=== PATIENT | male | born 1960 | race Caucasian/White ===

== ENCOUNTER 2020-07-31 23:36 | Emergency (ER) | payer OTHER ==
[~2020-07-31] VITALS: Ht 177.8 cm; Wt 86.4 kg
[2020-08-01 00:02] LABS: BASO # 0.1 x10^3/uL (0.0-0.2); BASO % 1 % (0-3); EOS # 0.1 x10^3/uL (0.0-0.7); EOS % 1 % (0-3); HEMATOCRIT 41.8 % (39.0-53.0); HEMOGLOBIN 14.4 g/dL (13.0-17.5); LYMPH # 1.4 x10^3/uL (1.0-4.8); LYMPH % 13 % (24-48); MEAN CORPUSCULAR HEMOGLOBIN 35 pg (25-35); MEAN CORPUSCULAR HGB CONC 34 g/dL (31-37); MEAN CORPUSCULAR VOLUME 102 fL (79-100); MONO # 1.6 x10^3/uL (0.0-1.1); MONO % 15 % (0-9); NEUT # 7.8 x10^3/uL (1.8-7.7); NEUT % 71 % (31-73); PLATELET COUNT 230 x10^3/uL (140-400); RED BLOOD COUNT 4.11 x10^6/uL (4.30-5.70); RED CELL DISTRIBUTION WIDTH 12.6 % (11.5-14.5); WHITE BLOOD COUNT 11.1 x10^3/uL (4.0-11.0)
[2020-08-01 00:03] LABS: BILIRUBIN,URINE NEGATIVE (NEG); CLARITY,URINE CLEAR; COLOR,URINE YELLOW; NITRITE,URINE NEGATIVE (NEG); PH,URINE 5.5 (<5.0-8.0); PROTEIN,URINE 30 mg/dL (NEG-TRACE); UROBILINOGEN,URINE 0.2 mg/dL (0.2 mg/dL)
[2020-08-01 00:09] LABS: BACTERIA,URINE 0 /HPF (0-FEW); RBC,URINE TNTC /HPF (0-2); WBC,URINE RARE /HPF (0-4)
[2020-08-01 00:14] LABS: CALCIUM 9.5 mg/dL (8.5-10.1); CREATININE 1.4 mg/dL (0.7-1.3); GFR 51.7; POTASSIUM 3.9 mmol/L (3.5-5.1)
[2020-08-01 00:20] LABS: ALBUMIN 4.3 g/dL (3.4-5.0); TOTAL BILIRUBIN 0.5 mg/dL (0.2-1.0); TOTAL PROTEIN 8.6 g/dL (6.4-8.2)
[2020-08-01] MEDS ORDERED: IV NORMAL SALINE 1000ML BAG 1,000 ML IV ONE (00:45)
[2020-08-01] MEDS ORDERED: HYDROmorphone 2 MG/ML VIAL IVP ONE ×3 (00:45→02:15)
[2020-08-01] MEDS ORDERED: CONTRAST GIVEN. MC PRN (01:00)
[2020-08-01] MEDS ORDERED: IOHEXOL 350 MG/ML 100 ML VIAL. IV ONE (01:00)
--- NOTE | 2020-08-01 01:08 | RAD ---
CT abdomen and pelvis without contrast: Reason for examination: Right flank pain. Helical images were obtained through the abdomen and pelvis without intravenous contrast administered . Reconstruction was performed in sagittal and coronal planes. Exposure: One or more of the following individualized dose reduction techniques were utilized for thi s examination: 1. Automated exposure control 2. Adjustment of the mA and/or kV according to patient size 3. Use of iterative reconstruction technique. There is atelectasis at the left lung base. The heart size is normal with no pericardial effusion. No abnormality seen at the liver, gallbladder, spleen, adrenal glands or pancreas. The abdominal aort a and inferior vena cava show no abnormalities. No abnormality seen at the appendix. There are some d iverticuli in the descending and sigmoid colon without evidence of diverticulitis. There is no eviden ce of colitis. The small intestinal tract shows no abnormal dilatation, wall thickening or apparent o bstruction. No abnormality seen at the stomach but there is moderate amount of gastric content presen t. No gastric obstruction is seen. The left kidney shows no renal mass, renal calculus, hydronephrosi s or evidence of obstructive uropathy. The right kidney however shows no renal mass or renal calculus . There is however a mild hydronephrosis which appears to be due to a small obstructing calculus whic h appears to lie at the ureterovesical junction and measures 3.8 mm in length. The bladder is not distended. Prostate gland is mildly enlarged. Seminal vesicles are symmetric. Note is made of small lytic lesions in the iliac bones. There is degenerative spondylosis with severe deg enerative disc disease at the L5-S1 disc level and a grade 1 retrolisthesis of L5 on S1. IMPRESSION: Linear atelectasis at the left lung base. 3.8 mm calculus at the right ureterovesical junction with mild hydronephrosis. Diverticulosis in the descending and sigmoid colon but no evidence of diverticulitis. Enlarged prostate gland. Small lytic lesions in the iliac bones. Recommend clinical correlation and follow-up. Degenerative spondylosis with severe degenerative disc disease at the L5-S1 disc level with a grade 1 retrolisthesis of L5 on S1. Electronically signed by: Margaret Fisher MD (08/01/2020 1:05 AM) NICK
[2020-08-01] MEDS ORDERED: ONDANSETRON PF 4 MG/2 ML VIAL. IVP ONE (01:15)
--- NOTE | 2020-08-01 01:29 | RAD ---
CT angiograms of the chest, abdomen and pelvis with contrast: Reason for examination: Flank pain. Rule out dissection. Helical images were obtained through the chest, abdomen and pelvis with intravenous administration of 80 cc Omnipaque 350 using angiographic protocol. 3-D MIPS reconstruction was performed in sagittal a nd coronal planes. Exposure: One or more of the following individualized dose reduction techniques were utilized for thi s examination: 1. Automated exposure control 2. Adjustment of the mA and/or kV according to patient size 3. Use of iterative reconstruction technique. The trachea and mainstem bronchi show no intraluminal lesions. No abnormality seen at the esophagus. The thoracic aorta shows no aneurysmal dilatation or dissection. The heart size is normal with no per icardial effusion. There is no evidence of pulmonary embolism. There is some linear atelectasis at th e lung bases. No consolidated infiltrates or pleural effusions are seen and no pneumothorax is eviden t. No acute bony abnormality seen in the thorax. No focal lesions are seen at the liver or spleen. No abnormalities of seen at the adrenal glands, hsu creas or gallbladder. The abdominal aorta shows no aneurysmal dilatation or dissection. No abnormalit y seen at the inferior vena cava. No abnormality seen at the stomach or duodenum. The small intestina l tract shows no abnormal dilatation, wall thickening or obstruction. No abnormality seen at the appe ndix. There is some diverticulosis in the descending colon and sigmoid colon without diverticulitis. There is no colitis. The kidneys show no renal masses. The left kidney shows no hydronephrosis or obs tructive uropathy. The right kidney shows mild hydronephrosis which appears to be due to a small 3.8 mm calculus at the ureterovesical junction. No abnormality seen in the bladder. Prostate gland is enlarged. Seminal vesicles are symmetric. No fr ee fluid or free air seen in the abdomen or pelvis. There is degenerative spondylosis with severe deg enerative disc disease at the L5-S1 disc level. There is a mild grade 1 retrolisthesis of L5 on S1. S mall lytic lesions are again seen in the iliac bones bilaterally. IMPRESSION: No evidence of aortic aneurysm or aortic dissection. No evidence of pulmonary embolus. Atelectasis at the lung bases. 3.8 mm calculus at the right ureterovesical junction with mild right hydronephrosis. Diverticulosis in the descending and sigmoid colon without diverticulitis. Enlarged prostate gland. Small lytic lesions in the iliac bones bilaterally. Recommend clinical correlation and follow-up. Degenerative spondylosis with severe degenerative disc disease at the L5-S1 level and a grade 1 retro listhesis of L5 on S1. Electronically signed by: Margaret Fisher MD (08/01/2020 1:27 AM) NICK
--- NOTE | 2020-08-01 01:40 | PHYS DOC ---
Past Medical History Past Medical History: No Pertinent History Past Surgical History: No Surgical History Smoking Status: Former Smoker Alcohol Use: Heavy Additional Information: DAILY BEER OR TEQUILA General Adult EDM: Chief Complaint: FLANK PAIN HPI: HPI: 60-year-old male who denies any significant past medical history presents the ED with his , complains of sharp, sudden onset right flank pain that started around 2 PM today with 1 episode of hematuria and increased urge to urinate. [place] states pain is also in his right lower abdomen and is difficult to localize-feels as if it moves back and forth between both locations. 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 Does not recall any particular injury at that time. Last time he was seen by physician was [address] Daryl Arteaga after his father -the suspected [place] at 77. Review of Systems: Review of Systems: Constitutional: Denies fever or chills. [] Eyes: Denies change in visual acuity. [] HENT: Denies nasal congestion or sore throat. [] Respiratory: Denies cough or shortness of breath. [] Cardiovascular: Denies chest pain or edema. [] GI: Denies melena, hematochezia, hematemesis, diarrhea or constipation : Denies dysuria or suprapubic discomfort] Musculoskeletal: Denies joint pain or swelling Integument: Denies rash or diaphoresis [] Neurologic: Denies headache, neck stiffness, focal weakness or sensory changes. [] Endocrine: Denies polyuria or polydipsia. [] Lymphatic: Denies swollen glands. [] Psychiatric: Denies depression or anxiety. [] Heart Score: C/O Chest Pain: No Risk Factors: Risk Factors: DM, Current or recent (<one month) smoker, HTN, HLP, family history of CAD, obesity. Risk Scores: Score 0 - 3: 2.5% MACE over next 6 weeks - Discharge Home Score 4 - 6: 20.3% MACE over next 6 weeks - Admit for Clinical Observation Score 7 - 10: 72.7% MACE over next 6 weeks - Early Invasive Strategies Current Medications: Current Medications Medications (Trade) Dose Ordered Sig/Virgilio Start Time Stop Time Status Last Admin Dose Admin Hydromorphone HCl (Dilaudid) 0.5 mg 1X ONCE 3/20/21 01:15 08/01/20 01:16 UNV Info (CONTRAST GIVEN -- Rx MONITORING) 1 each PRN DAILY PRN 08/01/20 01:00 08/03/20 00:59 Iohexol (Omnipaque 350 Mg/ml) 80 ml 1X ONCE 08/01/20 01:00 08/01/20 01:01 DC 08/01/20 01:02 80 ML Ondansetron HCl (Zofran) 4 mg 1X ONCE 08/01/20 01:15 08/01/20 01:16 UNV 08/01/20 01:18 4 MG Sodium Chloride 1,000 ml @ 1,000 mls/hr 1X ONCE 08/01/20 00:45 08/01/20 01:44 08/01/20 01:15 1,000 MLS/HR Allergies: Allergies: Allergies Coded Allergies Type Severity Reaction Last Updated Verified No Known Drug Allergies 07/31/20 No Physical Exam: PE: Constitutional: Well developed, well nourished, nontoxic-appearing, mild wr ithing and twisting of torso HENT: Normocephalic, atraumatic, Eyes: EOMI, conjunctiva normal, no discharge. Neck: Normal range of motion, supple, Cardiovascular: S1/2 present, regular rhythm Lungs & Thorax: Speaking in full sentences, bilateral equal chest rise, no tachypnea or increased work of breathing Abdomen: soft, no tenderness, no peritonitis/guarding/rigidity Skin: Warm, dry, no erythema, no rash. [] Back: No midline tenderness, right CVA pain - cannot reproduce with Alonso's punch, Extremities: No tenderness, no cyanosis, no lower extremity edema Neurologic: Alert and oriented X 3, normal motor function, normal sensory function, no focal deficits noted. [] Psychologic: Affect normal, judgement normal, mood normal. [] Current Patient Data: Labs: Laboratory Tests Test 07/31/20 23:40 07/31/20 23:51 Urine Collection Type Unknown Urine Color Yellow Urine Clarity Clear Urine pH 5.5 (<5.0-8.0) Urine Specific Holiday 1.025 (1.000-1.030) Urine Protein 30 mg/dL (NEG-TRACE) Urine Glucose (UA) 250 mg/dL (NEG) Urine Ketones (Stick) 40 mg/dL (NEG) Urine Blood Large (NEG) Urine Nitrite Negative (NEG) Urine Bilirubin Negative (NEG) Urine Urobilinogen Dipstick 0.2 mg/dL (0.2 mg/dL) Urine Leukocyte Esterase Negative (NEG) Urine RBC Tntc /HPF (0-2) Urine WBC Rare /HPF (0-4) Urine Squamous Epithelial Cells Occ /LPF Urine Bacteria 0 /HPF (0-FEW) Urine Mucus Slight /LPF White Blood Count 11.1 x10^3/uL (4.0-11.0) H Red Blood Count 4.11 x10^6/uL (4.30-5.70) L Hemoglobin 14.4 g/dL (13.0-17.5) Hematocrit 41.8 % (39.0-53.0) Mean Corpuscular Volume 102 fL (79-100) H Mean Corpuscular Hemoglobin 35 pg (25-35) Mean Corpuscular Hemoglobin Concent 34 g/dL (31-37) Red Cell Distribution Width 12.6 % (11.5-14.5) Platelet Count 230 x10^3/uL (140-400) Neutrophils (%) (Auto) 71 % (31-73) Lymphocytes (%) (Auto) 13 % (24-48) L Monocytes (%) (Auto) 15 % (0-9) H Eosinophils (%) (Auto) 1 % (0-3) Basophils (%) (Auto) 1 % (0-3) Neutrophils # (Auto) 7.8 x10^3/uL (1.8-7.7) H Lymphocytes # (Auto) 1.4 x10^3/uL (1.0-4.8) Monocytes # (Auto) 1.6 x10^3/uL (0.0-1.1) H Eosinophils # (Auto) 0.1 x10^3/uL (0.0-0.7) Basophils # (Auto) 0.1 x10^3/uL (0.0-0.2) Sodium Level 134 mmol/L (136-145) L Potassium Level 3.9 mmol/L (3.5-5.1) Chloride Level 98 mmol/L (98-107) Carbon Dioxide Level 24 mmol/L (21-32) Anion Gap 12 (6-14) Blood Urea Nitrogen 29 mg/dL (8-26) H Creatinine 1.4 mg/dL (0.7-1.3) H Estimated GFR (Cockcroft-Gault) 51.7 BUN/Creatinine Ratio 21 (6-20) H Glucose Level 115 mg/dL (70-99) H Calcium Level 9.5 mg/dL (8.5-10.1) Total Bilirubin 0.5 mg/dL (0.2-1.0) Aspartate Amino Transferase (AST) 29 U/L (15-37) Alanine Aminotransferase (ALT) 63 U/L (16-63) Alkaline Phosphatase 63 U/L (46-116) Total Protein 8.6 g/dL (6.4-8.2) H Albumin 4.3 g/dL (3.4-5.0) Albumin/Globulin Ratio 1.0 (1.0-1.7) Laboratory Tests 07/31/20 23:51 Laboratory Tests 07/31/20 23:51 Vital Signs: Vital Signs Date Time Temp Pulse Resp B/P (MAP) Pulse Ox O2 Delivery O2 Flow Rate FiO2 08/01/20 01:14 16 99 Room Air 07/31/20 23:43 98.2 95 201/115 (143) 98.2 EKG: EKG: [] Radiology/Procedures: Radiology/Procedures: IMAGING REPORT Signed PATIENT: RAJESH NAVARRO ACCOUNT: [id number] : 1960 LOCATION: ER AGE: 60 SEX: M EXAM STATUS: REG ER ORD. PHYSICIAN: MARTINA MURRAY DO REASON: right flank pain PROCEDURE: CT ABDOMEN PELVIS WO CONTRAST CT abdomen and pelvis without contrast: Reason for examination: Right flank pain. Helical images were obtained through the abdomen and pelvis without intravenous contrast administered. Reconstruction was performed in sagittal and coronal planes. Exposure: One or more of the following individualized dose reduction techniques were utilized for this examination: 1. Automated exposure control 2. Adjustment of the mA and/or kV according to patient size 3. Use of iterative reconstruction technique. There is atelectasis at the left lung base. The heart size is normal with no pericardial effusion. No abnormality seen at the liver, gallbladder, spleen, adrenal glands or pancreas. The abdominal aorta and inferior vena cava show no abnormalities. No abnormality seen at the appendix. There are some diverticuli in the descending and sigmoid colon without evidence of diverticulitis. There is no evidence of colitis. The small intestinal tract shows no abnormal dilatation, wall thicke rome or apparent obstruction. No abnormality seen at the stomach but there is moderate amount of gastric content present. No gastric obstruction is seen. The left kidney shows no renal mass, renal calculus, hydronephrosis or evidence of obstructive uropathy. The right kidney however shows no renal mass or renal calculus. There is however a mild hydronephrosis which appears to be due to a small obstructing calculus which appears to lie at the ureterovesical junction and measures 3.8 mm in length. The bladder is not distended. Prostate gland is mildly enlarged. Seminal vesicles are symmetric. Note is made of small lytic lesions in the iliac bones. There is degenerative spondylosis with severe degenerative disc disease at the L5-S1 disc level and a grade 1 retrolisthesis of L5 on S1. IMPRESSION: Linear atelectasis at the left lung base. 3.8 mm calculus at the right ureterovesical junction with mild hydronephrosis. Diverticulosis in the descending and sigmoid colon but no evidence of di verticulitis. Enlarged prostate gland. Small lytic lesions in the iliac bones. Recommend clinical correlation and follow-up. Degenerative spondylosis with severe degenerative disc disease at the L5-S1 disc level with a grade 1 retrolisthesis of L5 on S1. Electronically signed by: Tera Nicolas MD (08/01/2020 1:05 AM) [facility] DICTATED and SIGNED BY: TERA NICOLAS MD DATE: 08/01/20 [id number] IMAGING REPORT Signed PATIENT: RAJESH NAVARRO ACCOUNT: [id number] : 1960 LOCATION: ER AGE: 60 SEX: M EXAM STATUS: REG ER ORD. PHYSICIAN: MARTINA MURRAY DO REASON: flank paink, r/o dissection OMNI 350, 80 ML IV PROCEDURE: CT ANGIO CHEST ABD PELVIS CT angiograms of the chest, abdomen and pelvis with contrast: Reason for examination: Flank pain. Rule out dissection. Helical images were obtained through the chest, abdomen and pelvis with intravenous administration of 80 cc Omnipaque 350 using angiographic protocol. 3-D MIPS reconstruction was performed in sagittal and coronal planes. Exposure: One or more of the following individualized dose reduction techniques were utilized for this examination: 1. Automated exposure control 2. Adjustment of the mA and/or kV according to patient size 3. Use of iterative reconstruction technique. The trachea and mainstem bronchi show no intraluminal lesions. No abnormality seen at the esophagus. The thoracic aorta shows no aneurysmal dilatation or dissection. The heart size is normal with no pericardial effusion. There is no evidence of pulmonary embolism. There is some linear atelectasis at the lung bases. No consolidated infiltrates or pleural effusions are seen and no pneumothorax is evident. No acute bony abnormality seen in the thorax. No focal lesions are seen at the liver or spleen. No abnormalities of seen at the adrenal glands, pancreas or gallbladder. The abdominal aorta shows no aneurysmal dilatation or dissection. No abnormality seen at the inferior vena cava. No abnormality seen at the stomach or duodenum. The small intestinal tract shows no abnormal dilatation, wall thickening or obstruction. No abnormality seen at the appendix. There is some diverticulosis in the descending colon and sigmoid colon without diverticulitis. There is no colitis. The kidneys show no renal masses. The left kidney shows no hydronephrosis or obstructive uropathy. The right kidney shows mild hydronephrosis which appears to be due to a small 3.8 mm calculus at the ureterovesical junction. No abnormality seen in the bladder. Prostate gland is enlarged. Seminal vesicles are symmetric. No free fluid or free air seen in the abdomen or pelvis. There is degenerative spondylosis with severe degenerative disc disease at the L5-S1 disc level. There is a mild grade 1 retrolisthesis of L5 on S1. Small lytic lesions are again seen in the iliac bones bilaterally. IMPRESSION: No evidence of aortic aneurysm or aortic dissection. No evidence of pulmonary embolus. Atelectasis at the lung bases. 3.8 mm calculus at the right ureterovesical junction with mild right hydron ephrosis. Diverticulosis in the descending and sigmoid colon without diverticulitis. Enlarged prostate gland. Small lytic lesions in the iliac bones bilaterally. Recommend clinical correlation and follow-up. Degenerative spondylosis with severe degenerative disc disease at the L5-S1 level and a grade 1 retrolisthesis of L5 on S1. Electronically signed by: Tera Nicolas MD (08/01/2020 1:27 AM) [facility] DICTATED and SIGNED BY: TERA NICOLAS MD DATE: 08/01/20 [id number] 0 Course & Med Decision Making: Course & Med Decision Making Pertinent Labs and Imaging studies reviewed. (See chart for details) Concern for renal colic with 3.8 cm right ureteral stone at UVP with mild hydronephrosis, hematuria consistent with his presentation. Patient's pain now well controlled, no n/v. Has asymptomatic hypertension although I believe patient's blood pressure is more likely related to his pain. Urinalysis with no bacteria. Labs with DANIEL, no prior for comparison. Also with lytic lesions in the iliac bones-we will need follow-up to evaluate for malignancy. CT report was printed and given to pt to take to pcp and urology. Will discharge home with strict ED return precautions were given for fever, flulike symptoms, intractable nausea and vomiting/dehydration, worsening back pain or dysuria. Encouraged urgent outpatient follow-up with PMD and urology. Life-threatening processes were considered but are low suspicion at this time, given history, physical exam and ED workup. Pt was educated on all prescription medications and adverse effects. All patient's questions were answered and pt was stable at time of discharge. Life/limb-threatening differential includes but is not limited to, aortic dissection/aneurysm, cauda equina syndrome, transverse myelitis, spinal cord/epidural compression syndromes, discitis, spinal stenosis, epidural abscess or hematoma, osteomyelitis, disc herniation, surgical abdomen, stable or unstable fracture, renal/ureteral colic, sepsis, meningitis, musculoskeletal injury, traumatic injury, intraabdominal/retroperitoneal or pelvic bleeding. I spoken with the patient and her caregivers. I explained the patient's condition, diagnoses and treatment plan based on the information available to me at this time. I have answered the patient and her caregiver's questions and addressed any concerns. The patient and her caregivers have a good understanding of patient's diagnosis, condition and treatment plan as can be expected at this point. Vital signs have been stable. Patient's condition is stable and appropriate for discharge from the emergency department. Patient will pursue further outpatient evaluation with primary care physician or other designated or consulting physician as outlined in the discharge instructions. The patient and/or caregivers are agreeable to this plan of care and follow-up instructions have been explained in detail. The patient and/or caregivers have received these instructions in written form and have expressed an understanding of the discharge instructions. The patient and/or caregivers are aware that any significant change of condition or worsening of symptoms should prompt immediate return to this or the closest emergency department or call to [email or web address] Jimenez Disclaimer: Tony Disclaimer: This electronic medical record was generated, in whole or in part, using a voice recognition dictation system. Departure Departure Impression: Primary Impression: Obstructive uropathy Additional Impressions: DANIEL (acute kidney injury) Enlarged prostate Disposition: 01 DC HOME SELF CARE/HOMELESS Condition: STABLE Referrals: Sean ARTEAGA MD (PCP) Within 5 to 7 days for reevaluation of kidney function, enlarged prostate and lytic lesions in iliac bones Patient Instructions: Acute Kidney Injury, Kidney Stones, Ureteral Colic Additional Instructions: FOLLOW UP WITH UROLOGY: for definitive kidney stone management [facility] [address] [address] APPOINTMENTS: [phone] EMERGENCY DEPARTMENT GENERAL DISCHARGE INSTRUCTIONS Thank you for coming to [facility] Emergency Department (ED) today and trusting us with you care. We trust that you had a positive experience in our Emergency Department. If you wish to speak to the department management, you may call the Director at [phone]. YOUR FOLLOW UP INSTRUCTIONS ARE FOLLOWS: 1. Do you have a private Doctor? If you do not have a private doctor, please ask for a resource list of physicians or clinics that may be able to assist you with follow up care. 2. The Emergency Physicain has interpreted your x-rays. The X-Ray specialist will also review them. If there is a change in the findings, you will be notified in 48 hours when at all possible. 3. A lab test or culture has been done, your results will be reviewed and you will be notified if you need a change in treatment. ADDITIONAL INSTRUCTIONS AND INFORMATION: 1. Your care today has been supervised by a physician who is specially trained in emergency care. Many problems require more than one evaluation for a complete diagnosis and treatment. We recommend that you schedule your follow up appointment as recommended to ensure complete treatment of you illness or injury. If you are unable to obtain follow up care and continue to have a problem, or if your condition worsens, we recommend that you return to the ED. 2. We are not able to safely determine your condition over the phone nor are we able to give sound medical advice over the phone. For these safety reasons, if you call for medical advice we will ask you to come to the ED for further evaluation. 3. If you have any questions regarding these discharge instructions please call the ED at [phone]. SAFETY INFORMATION: In the interest of safety, wellness, and injury prevention; we encourage you to wear your sealbelt, if you smoke; quite smoking, and we encourage family to use a protect ivette helmet for bicycling and other sporting events that present an increased risk for head injury. IF YOUR SYMPTOMS WORSEN OR NEW SYMPTOMS DEVELOP, OR YOU HAVE CONCERNS ABOUT YOUR CONDITION; OR IF YOUR CONDITION WORSENS WHILE YOU ARE WAITING FOR YOUR FOLLOW UP APPOINTMENT; EITHER CONTACT YOUR PRIMARY CARE DOCTOR, THE PHYSICIAN WHOSE NAME AND NUMBER YOU WERE GIVEN, OR RETURN TO THE ED IMMEDIATELY. Scripts Ondansetron (ONDANSETRON ODT) 4 Mg Tab.rapdis 1 TAB PO PRN Q6-8HRS, #20 TAB Prov: MARTINA MURRAY DO 08/01/20 Tamsulosin Hcl (FLOMAX) 0.4 Mg Cap.er.24h 1 CAP PO DAILY for 14 Days, #14 CAP 0 Refills Prov: MARTINA MURRAY DO 08/01/20 Hydrocodone Bit/Acetaminophen (HYDROCODONE-APAP 5-325 ) 1 Tab Tablet 1 TAB PO PRN Q6HRS PRN for PAIN for 4 Days, #16 TAB 0 Refills Prov: MARTINA MURRAY DO 08/01/20 MARTINA MURRAY DO Aug 01, 2020 01:40
[2020-08-01] MEDS ORDERED: TAMSULOSIN 0.4 MG CAP.ER.24H. PO ONE (02:00)
[2020-08-01 03:20] VITALS: BP 166/100
[2020-08-01] MEDS ORDERED: TAMS0.4C97 PO (03:37)
[2020-08-01] MEDS ORDERED: ONDA4TAB12 PO (03:37)
[2020-08-01] MEDS ORDERED: HYDR-2761 PO (03:37)
== END 2020-08-01 03:48 | disposition home or self-care (01) ==
LOC: ER 23:36
DX: N13.9 Obstructive and reflux uropathy, unspecified (principal); N17.8 Other acute kidney failure; N40.0 Benign prostatic hyperplasia without lower urinary tract symptoms; F10.10 Alcohol abuse, uncomplicated; Z87.891 Personal history of nicotine dependence
CPT/HCPCS: 36415; 71275; 74174; 74176; 80053; 81001; 85025; 96361; 96374; 96375; 96376; 99285; J1170; J2405; J7030; Q9967